=== PATIENT | female | born 1980 | race African-American/Black ===

== ENCOUNTER 2017-11-13 00:49 | Emergency (ER) | payer MEDICAID ==
[~2017-11-13] VITALS: Ht 170.2 cm; Wt 91.0 kg
[2017-11-13] MEDS ORDERED: SODIUM CHLORIDE 0.9% 1,000 ML IV ONE (03:19)
[2017-11-13] MEDS ORDERED: ONDANSETRON HCL 4MG/2ML VIAL IV STA (03:19)
[2017-11-13] MEDS ORDERED: MORPHINE SULFATE 4 MG/ML CPJ (NOT FOR IM USE) IV STA (03:19)
[2017-11-13 03:57] LABS: BASOPHILS % 0.6 % (0.0-2.0); EOSINOPHILS % 0.8 % (0.0-5.0); HEMATOCRIT. 37.1 % (36.0-48.0); LYMPHOCYTES % 10.8 % (20.0-50.0); MEAN CORPUSCULAR HEMOGLOBIN 22.8 pg (28.0-32.0); MEAN CORPUSCULAR VOLUME 70.4 fL (81.0-99.0); MEAN PLATELET VOLUME 9.1 fl (7.4-10.4); MONOCYTES % 6.3 % (2.0-8.0); NEUTROPHILS % 81.5 % (40.0-76.0); PLATELET 335 x1000/uL (130-400); RED BLOOD CELL COUNT 5.27 mill/uL (4.2-5.4); RED CELL DISTRIBUTION WIDTH 16.1 % (11.6-14.6)
[2017-11-13 03:59] LABS: CHLORIDE 106 mEq/L (98-107)
[2017-11-13 04:04] LABS: ETHANOL BLOOD < 10 mg/dL
[2017-11-13 04:18] LABS: CLARITY URINE CLEAR (CLEAR); COLOR URINE ORANGE (YELLOW); KETONES URINE NEGATIVE (NEGATIVE); LEUKOCYTE ESTERASE URINE NEGATIVE (NEGATIVE); NITRITE URINE NEGATIVE (NEGATIVE); OCCULT BLOOD URINE 3+ (NEGATIVE); PROTEIN URINE TRACE (NEGATIVE); SPECIFIC GRAVITY URINE 1.023 (1.005-1.030); UROBILINOGEN URINE 0.2 E.U./dL (0.2-1.0)
[2017-11-13 04:23] LABS: HCG SCREEN NEGATIVE
[2017-11-13 04:32] LABS: PROTHROMBIN TIME 10.7 sec (9.4-11.6)
[2017-11-13 04:42] LABS: *AMPHETAMINES SCREEN URINE NEGATIVE (NEGATIVE); *BARBITURATES SCREEN URINE NEGATIVE (NEGATIVE); *BENZODIAZEPINES SCREEN URINE NEGATIVE (NEGATIVE)
[2017-11-13 04:43] LABS: *COCAINE SCREEN URINE NEGATIVE (NEGATIVE); METHADONE URINE SCREEN NEGATIVE (NEGATIVE); OPIATES URINE SCREEN NEGATIVE (NEGATIVE); PHENCYCLIDINE URINE SCREEN NEGATIVE (NEGATIVE)
[2017-11-13 04:45] LABS: CANNABINOID URINE SCREEN PRESUMTIVE POSITIVE (NEGATIVE)
[2017-11-13 05:24] VITALS: BP 122/71
== END 2017-11-13 05:27 | disposition home or self-care (01) ==
LOC: ER 00:49
DX: R51 Headache (principal); F12.188 Cannabis abuse with other cannabis-induced disorder; J45.909 Unspecified asthma, uncomplicated; F17.200 Nicotine dependence, unspecified, uncomplicated
CPT/HCPCS: 36415; 70450; 80053; 80305; 81003; 83690; 84484; 84703; 85025; 85610; 96361; 96374; 96375; 99285; G0482; J2270; J2405; J7030; Z7610

== ENCOUNTER 2019-06-20 14:47 | Emergency (ER) | payer MEDICAID ==
[~2019-06-20] VITALS: Ht 170.2 cm; Wt 95.3 kg
[2019-06-20 17:53] LABS: CLARITY URINE CLOUDY (CLEAR); COLOR URINE YELLOW (YELLOW); KETONES URINE NEGATIVE (NEGATIVE); LEUKOCYTE ESTERASE URINE NEGATIVE (NEGATIVE); NITRITE URINE NEGATIVE (NEGATIVE); OCCULT BLOOD URINE 3+ (NEGATIVE); PH URINE 6.5 (4.5-8.0); PROTEIN URINE NEGATIVE (NEGATIVE); SPECIFIC GRAVITY URINE 1.019 (1.005-1.030); UROBILINOGEN URINE 0.2 E.U./dL (0.2-1.0)
[2019-06-20] MEDS: ACETAMINOPHEN 325MG TABLET PO PRN ×2 (18:02→18:18)
[2019-06-20 18:12] LABS: BASOPHILS % 0.6 % (0.0-2.0); EOSINOPHILS % 2.5 % (0.0-5.0); HEMATOCRIT. 36.7 % (36.0-48.0); HEMOGLOBIN. 11.8 g/dL (12.0-16.0); LYMPHOCYTES % 20.3 % (20.0-50.0); MEAN CORPUSCULAR VOLUME 71.8 fL (81.0-99.0); MEAN PLATELET VOLUME 9.4 fl (7.4-10.4); MONOCYTES % 8.8 % (2.0-8.0); NEUTROPHILS % 67.8 % (40.0-76.0); PLATELET 293 x1000/uL (130-400); RED BLOOD CELL COUNT 5.11 mill/uL (4.2-5.4); RED CELL DISTRIBUTION WIDTH 16.3 % (11.6-14.6)
[2019-06-20 18:13] LABS: CHLORIDE 107 mEq/L (98-107)
[2019-06-20 18:39] LABS: B-HCG QUANTITATIVE 12339 mIU/mL (<3)
[2019-06-20 21:59] VITALS: BP 105/81
== END 2019-06-20 22:01 | disposition home or self-care (01) ==
LOC: ER 14:47
DX: O20.0 Threatened abortion (principal); Z3A.01 Less than 8 weeks gestation of pregnancy; O23.41 Unspecified infection of urinary tract in pregnancy, first trimester; O26.891 Other specified pregnancy related conditions, first trimester; R03.0 Elevated blood-pressure reading, without diagnosis of hypertension; O09.521 Supervision of elderly multigravida, first trimester
CPT/HCPCS: 36415; 76801; 80053; 81003; 84702; 85025; 86850; 86900; 99284

== ENCOUNTER 2019-06-22 13:32 | Emergency (ER) | payer MEDICAID ==
[~2019-06-22] VITALS: Ht 170.2 cm; Wt 123.0 kg
[2019-06-22 14:10] VITALS: BP 136/75
== END 2019-06-22 19:21 | disposition home or self-care (01) ==
LOC: ER 13:32
DX: Z01.812 Encounter for preprocedural laboratory examination (principal); J45.909 Unspecified asthma, uncomplicated; Z98.890 Other specified postprocedural states
CPT/HCPCS: 99281

== ENCOUNTER 2019-06-23 06:26 | Emergency (ER) | payer MEDICAID ==
[~2019-06-23] VITALS: Ht 170.2 cm; Wt 123.0 kg
[2019-06-23 07:13] LABS: CLARITY URINE CLEAR (CLEAR); COLOR URINE YELLOW (YELLOW); KETONES URINE 2+ (NEGATIVE); LEUKOCYTE ESTERASE URINE NEGATIVE (NEGATIVE); NITRITE URINE NEGATIVE (NEGATIVE); OCCULT BLOOD URINE 3+ (NEGATIVE); PH URINE 5.5 (4.5-8.0); PROTEIN URINE NEGATIVE (NEGATIVE); SPECIFIC GRAVITY URINE 1.012 (1.005-1.030); UROBILINOGEN URINE 0.2 E.U./dL (0.2-1.0)
[2019-06-23 08:26] LABS: BASOPHILS % 0.7 % (0.0-2.0); EOSINOPHILS % 2.6 % (0.0-5.0); HEMATOCRIT. 36.1 % (36.0-48.0); HEMOGLOBIN. 11.6 g/dL (12.0-16.0); LYMPHOCYTES % 14.6 % (20.0-50.0); MEAN CORPUSCULAR VOLUME 71.6 fL (81.0-99.0); MEAN PLATELET VOLUME 8.9 fl (7.4-10.4); MONOCYTES % 9.3 % (2.0-8.0); NEUTROPHILS % 72.8 % (40.0-76.0); PLATELET 280 x1000/uL (130-400); RED BLOOD CELL COUNT 5.05 mill/uL (4.2-5.4); RED CELL DISTRIBUTION WIDTH 15.8 % (11.6-14.6)
[2019-06-23 08:33] LABS: CHLORIDE 106 mEq/L (98-107)
[2019-06-23 08:56] LABS: B-HCG QUANTITATIVE 23901 mIU/mL (<3)
[2019-06-23 09:39] VITALS: BP 123/55
== END 2019-06-23 09:53 | disposition home or self-care (01) ==
LOC: ER 06:26
DX: O20.0 Threatened abortion (principal); O99.321 Drug use complicating pregnancy, first trimester; F12.10 Cannabis abuse, uncomplicated; Z3A.01 Less than 8 weeks gestation of pregnancy
CPT/HCPCS: 36415; 76801; 80053; 81003; 84702; 85025; 86850; 86900; 99283

== ENCOUNTER 2019-07-30 07:02 | Emergency (ER) | payer MEDICAID, MEDICARE ==
[~2019-07-30] VITALS: Ht 170.2 cm; Wt 126.0 kg
[2019-07-30 08:46] LABS: CLARITY URINE CLEAR (CLEAR); COLOR URINE YELLOW (YELLOW); KETONES URINE NEGATIVE (NEGATIVE); LEUKOCYTE ESTERASE URINE NEGATIVE (NEGATIVE); NITRITE URINE NEGATIVE (NEGATIVE); OCCULT BLOOD URINE NEGATIVE (NEGATIVE); PH URINE 6.5 (4.5-8.0); PROTEIN URINE NEGATIVE (NEGATIVE); SPECIFIC GRAVITY URINE 1.008 (1.005-1.030); UROBILINOGEN URINE 0.2 E.U./dL (0.2-1.0)
[2019-07-30 08:54] LABS: CHLORIDE 106 mEq/L (98-107)
[2019-07-30 09:04] LABS: BASOPHILS % 0.4 % (0.0-2.0); EOSINOPHILS % 3.7 % (0.0-5.0); HEMATOCRIT. 36.1 % (36.0-48.0); HEMOGLOBIN. 11.7 g/dL (12.0-16.0); MEAN CORPUSCULAR HEMOGLOBIN 23.1 pg (28.0-32.0); MEAN CORPUSCULAR VOLUME 71.5 fL (81.0-99.0); MEAN PLATELET VOLUME 8.8 fl (7.4-10.4); MONOCYTES % 7.6 % (2.0-8.0); NEUTROPHILS % 72.3 % (40.0-76.0); PLATELET 292 x1000/uL (130-400); RED BLOOD CELL COUNT 5.06 mill/uL (4.2-5.4); RED CELL DISTRIBUTION WIDTH 16.1 % (11.6-14.6)
[2019-07-30 09:18] LABS: B-HCG QUANTITATIVE 85632 mIU/mL (<3)
[2019-07-30 09:40] VITALS: BP 89/61
== END 2019-07-30 09:42 | disposition home or self-care (01) ==
LOC: ER 07:02
DX: O20.0 Threatened abortion (principal); O26.891 Other specified pregnancy related conditions, first trimester; R03.0 Elevated blood-pressure reading, without diagnosis of hypertension; O09.521 Supervision of elderly multigravida, first trimester; Z3A.11 11 weeks gestation of pregnancy
CPT/HCPCS: 36415; 76801; 80053; 81003; 81025; 84702; 85025; 86850; 86900; 99284

== ENCOUNTER 2019-11-05 15:37 | Observation (INO) | payer MEDICARE ==
[~2019-11-05] VITALS: Ht 170.2 cm; Wt 90.7 kg
[2019-11-05] MEDS ORDERED: ACETAMINOPHEN 325MG TABLET PO NR (17:15)
[2019-11-05 17:33] LABS: CLARITY URINE CLOUDY (CLEAR); COLOR URINE YELLOW (YELLOW); KETONES URINE NEGATIVE (NEGATIVE); LEUKOCYTE ESTERASE URINE TRACE (NEGATIVE); NITRITE URINE NEGATIVE (NEGATIVE); OCCULT BLOOD URINE NEGATIVE (NEGATIVE); PH URINE 6.5 (4.5-8.0); PROTEIN URINE NEGATIVE (NEGATIVE); SPECIFIC GRAVITY URINE 1.019 (1.005-1.030); UROBILINOGEN URINE 0.2 E.U./dL (0.2-1.0)
[2019-11-05] MEDS ORDERED: ACETAMINOPHEN 500MG TABLET PO NR (17:45)
== END 2019-11-05 18:15 | disposition home or self-care (01) ==
LOC: 8 EST LDRP 15:37
PROVIDERS: ADMIT Obstetrics & Gynecology; ATTEND Obstetrics & Gynecology
DX: O26.892 Other specified pregnancy related conditions, second trimester (principal); R10.30 Lower abdominal pain, unspecified; Z3A.27 27 weeks gestation of pregnancy
CPT/HCPCS: 81003; 99281; G0378

== ENCOUNTER 2019-11-14 23:06 | Observation (INO) | payer MEDICARE ==
[~2019-11-14] VITALS: Ht 170.2 cm; Wt 134.7 kg
[2019-11-15] MEDS ORDERED: LACTATED RINGERS 1,000 ML IV SCH (00:15)
[2019-11-15] MEDS ORDERED: FERR-71 PO (01:23)
[2019-11-15] MEDS ORDERED: PNV1TABL50 PO (01:23)
== END 2019-11-15 02:00 | disposition home or self-care (01) ==
LOC: 8 EST LDRP 23:06
PROVIDERS: ADMIT Obstetrics & Gynecology; ATTEND Obstetrics & Gynecology
DX: O42.913 Preterm premature rupture of membranes, unspecified as to length of time between rupture and onset of labor, third trimester (principal); Z3A.28 28 weeks gestation of pregnancy
CPT/HCPCS: 76805; 76817; 99281; G0378

== ENCOUNTER 2019-12-07 13:30 | Observation (INO) | payer MEDICARE ==
[~2019-12-07] VITALS: Ht 170.2 cm; Wt 90.7 kg
[~2019-12-07 13:30] MED LIST: FERR-71 PO; PNV1TABL50 PO
[2019-12-07] MEDS ORDERED: SODIUM CHLORIDE 0.9% 1,000 ML IV SCH (14:45)
[2019-12-07] MEDS ORDERED: ONDANSETRON HCL 4MG/2ML INJ IV NR (14:45)
[2019-12-07] MEDS ORDERED: ACETAMINOPHEN 500MG TABLET PO NR (14:45)
[2019-12-07 15:03] LABS: CLARITY URINE CLEAR (CLEAR); COLOR URINE YELLOW (YELLOW); KETONES URINE NEGATIVE (NEGATIVE); LEUKOCYTE ESTERASE URINE NEGATIVE (NEGATIVE); NITRITE URINE NEGATIVE (NEGATIVE); OCCULT BLOOD URINE NEGATIVE (NEGATIVE); PROTEIN URINE NEGATIVE (NEGATIVE); UROBILINOGEN URINE 0.2 E.U./dL (0.2-1.0)
== END 2019-12-07 16:17 | disposition home or self-care (01) ==
LOC: 8 EST LDRP 13:30 → INTOOBSV 13:30 → 8 EST LDRP 14:30
PROVIDERS: ADMIT Specialist; ATTEND Obstetrics & Gynecology
DX: O26.893 Other specified pregnancy related conditions, third trimester (principal); Z3A.32 32 weeks gestation of pregnancy
CPT/HCPCS: 59025; 81003; 96361; 96374; G0378; J2405; 96360; 99281

== ENCOUNTER 2020-01-11 15:58 | Observation (INO) | payer MEDICARE ==
[~2020-01-11] VITALS: Ht 170.2 cm; Wt 133.4 kg
[2020-01-11] MEDS ORDERED: ASPI-1497 PO (16:38)
[2020-01-11] MEDS ORDERED: LACTATED RINGERS 1,000 ML IV SCH (16:45)
[2020-01-11] MEDS ORDERED: ONDANSETRON HCL 4MG/2ML INJ IV NR (16:45)
[2020-01-11] MEDS ORDERED: ONDANSETRON HCL 4MG/2ML INJ IM NR (17:15)
== END 2020-01-11 17:40 | disposition home or self-care (01) ==
LOC: 8 EST LDRP 15:58
PROVIDERS: ADMIT Obstetrics & Gynecology; ATTEND Obstetrics & Gynecology
DX: O21.9 Vomiting of pregnancy, unspecified (principal); Z3A.37 37 weeks gestation of pregnancy
CPT/HCPCS: 59025; 96372; G0378; J2405; 99281

== ENCOUNTER 2021-02-26 17:26 | Emergency (ER) | payer MEDICARE ==
[~2021-02-26] VITALS: Ht 170.2 cm; Wt 91.0 kg
[~2021-02-26 17:26] MED LIST changes: -PNV1TABL50 PO
[2021-02-26] MEDS ORDERED: ACETAMINOPHEN 325MG TABLET PO ONE (18:15)
[2021-02-26] MEDS ORDERED: KETOROLAC 60MG/2ML VIAL IM ONE (18:30)
[2021-02-26] MEDS ORDERED: PROCHLORPERAZINE MALEATE 10MG TABLET PO ONE (18:30)
[2021-02-26 18:58] VITALS: BP 154/82
[2021-02-26] MEDS ORDERED: IBUP-2029 MT (19:04)
== END 2021-02-26 19:23 | disposition home or self-care (01) ==
LOC: ER 17:26
DX: R51.9 Headache, unspecified (principal); Z20.822 Contact with and (suspected) exposure to COVID-19; I10 Essential (primary) hypertension
CPT/HCPCS: 96372; 99283; C9803; J1885; Q0164; U0003; U0005

== ENCOUNTER 2024-05-03 08:19 | Emergency (ER) | payer MEDICAID, MEDICARE, OTHER ==
[~2024-05-03] VITALS: Ht 170.2 cm; Wt 104.0 kg
[~2024-05-03 08:19] MED LIST changes: +IBUP-2029 MT
[2024-05-03 08:34] VITALS: O2SAT 100
[2024-05-03 09:05] VITALS: PULSE 106; RESP 20
[2024-05-03] MEDS: IPRATROPIUM/ALBUTEROL 0.5-3(2.5)MG/3ML NEB HHN ONE ×3 (09:06→09:50)
[2024-05-03] MEDS: PREDNISONE 20MG TABLET PO ONE (09:32)
[2024-05-03 09:50] VITALS: PULSE 121; RESP 24
[2024-05-03] MEDS: ONDANSETRON 4MG ODT PO ONE (09:55)
[2024-05-03] MEDS ORDERED: P50 MT (10:40)
[2024-05-03] MEDS ORDERED: ALBU05 NEB (10:40)
[2024-05-03] MEDS ORDERED: ALBU18HF2 IH (10:40)
[2024-05-03] MEDS ORDERED: GUAI-450 MT (10:40)
[2024-05-03] MEDS ORDERED: ONDA-239 PO (10:51)
[2024-05-03 11:03] VITALS: BP 135/98; PULSE 107; RESP 18; TEMP 36.78072; O2SAT 100
== END 2024-05-03 11:04 | disposition home or self-care (01) ==
LOC: ER 08:19
DX: J45.901 Unspecified asthma with (acute) exacerbation (principal); Z98.890 Other specified postprocedural states
CPT/HCPCS: 94640; 99285; Q0162; J7512; Z7610 ×3

== ENCOUNTER 2024-09-04 01:41 | Emergency (ER) | payer OTHER ==
[~2024-09-04] VITALS: Ht 170.2 cm; Wt 88.0 kg
[~2024-09-04 01:41] MED LIST changes: +ALBU05 NEB; +ALBU18HF2 IH; +GUAI-450 MT; +ONDA-239 PO; +P50 MT
[2024-09-04 01:46] VITALS: TEMP 36.9
[2024-09-04 02:52] VITALS: TEMP 98.4; O2SAT 100
[2024-09-04] MEDS: ONDANSETRON HCL 4MG/2ML INJ IV ONE (02:57)
[2024-09-04] MEDS: KETAMINE HCL 50 MG/ML 10ML IV ONE (02:58)
[2024-09-04 04:43] VITALS: BP 162/73; PULSE 62; RESP 16; O2SAT 99
== END 2024-09-04 04:52 | disposition home or self-care (01) ==
LOC: ER 01:41
DX: T17.208A Unspecified foreign body in pharynx causing other injury, initial encounter (principal); J45.909 Unspecified asthma, uncomplicated; W44.9XXA Unspecified foreign body entering into or through a natural orifice, initial encounter; Y93.89 Activity, other specified; Y92.89 Other specified places as the place of occurrence of the external cause; Y99.8 Other external cause status
CPT/HCPCS: 96374; 99152; 99285; J3490; J2405; Z7610; 42809